=== PATIENT | male | born 1950 | race Caucasian/White ===

== ENCOUNTER 2025-03-18 07:05 | Observation (INO) ==
[2025-03-18] MEDS: LR 1,000 ML IV 1,000 ML IV ONE (07:22)
[2025-03-18] MEDS: ANCEF VIAL 1 GRAM ONE (08:19)
[2025-03-18] MEDS: NS 100 ML IV 100 ML ONE (08:19)
[2025-03-18] MEDS: VERSED ONE (08:25)
[2025-03-18] MEDS: FENTANYL VIAL INJ 100 mcg ONE (08:25)
[2025-03-18] MEDS: DIPRIVAN VIAL 20 ML ONE (08:26)
[2025-03-18] MEDS: ZEMURON 100 MG VIAL ONE (08:27)
[2025-03-18] MEDS: ZOFRAN INJ 4 MG VIAL ONE (08:27)
[2025-03-18] MEDS: PEPCID 20 MG VIAL ONE (08:29)
[2025-03-18] MEDS: ZOFRAN INJ 4 MG VIAL IVP PRN (08:30)
[2025-03-18] MEDS: PEPCID 20 MG VIAL IVP PRN (08:30)
[2025-03-18] MEDS ORDERED: ULTANE GAS IN ONE (08:30)
[2025-03-18] MEDS: QUELICIN (OR ANECTINE) ONE (08:34)
[2025-03-18] MEDS: LR 1,000 ML IV 900 ML IV PRN (08:40)
[2025-03-18] MEDS: ANCEF VIAL 1 GRAM IV PRN (08:40)
[2025-03-18] MEDS: VERSED IVP PRN (08:41)
[2025-03-18] MEDS: DIPRIVAN VIAL 150 ML IVP PRN (08:48)
[2025-03-18] MEDS: QUELICIN (OR ANECTINE) IVP PRN (08:48)
[2025-03-18] MEDS: FENTANYL VIAL INJ 100 mcg IVP PRN (08:48)
[2025-03-18] MEDS ORDERED: XYLOCAINE 2 % (PLAIN) PRN (08:48)
[2025-03-18] MEDS: KETAMINE HCL IV PRN (08:51)
[2025-03-18] MEDS: DECADRON INJ IVP PRN (08:52)
[2025-03-18] MEDS: POLYMYXIN B SULFATE ONE (08:59)
[2025-03-18] MEDS: MARCAINE 0.5% ONE (08:59)
[2025-03-18] MEDS: KETAMINE HCL ONE (09:07)
[2025-03-18] MEDS: PRECEDEX INJ VIAL ONE (09:09)
[2025-03-18] MEDS ORDERED: DILAUDID INJ IVP PRN (09:16)
[2025-03-18] MEDS ORDERED: BARHEMSYS INJ IVP PRN (09:16)
[2025-03-18] MEDS ORDERED: BENADRYL INJ 50 MG VIAL IVP PRN (09:16)
[2025-03-18] MEDS ORDERED: REGLAN INJ 10 MG VIAL IVP PRN (09:16)
[2025-03-18] MEDS ORDERED: ZOFRAN INJ 4 MG VIAL IVP PRN ×2 (09:16→10:39)
[2025-03-18] MEDS: OFIRMEV IV 1000 MG VIAL 1,000 MG/100 ML VIAL IV PRN (09:18)
[2025-03-18] MEDS: OFIRMEV IV 1000 MG VIAL 1,000 MG/100 ML VIAL IV ONE (09:19)
[2025-03-18] MEDS: DECADRON INJ ONE (09:19)
[2025-03-18] MEDS: PRECEDEX INJ VIAL IVP PRN (09:44)
[2025-03-18] MEDS: ZEMURON 100 MG VIAL IVP PRN (09:46)
[2025-03-18] MEDS: BRIDION ONE (09:48)
[2025-03-18] MEDS: BACTROBAN TOPICAL OINT ONE (10:00)
[2025-03-18] MEDS: BRIDION IVP PRN (10:04)
[2025-03-18] MEDS: D5 1/2 NS 1,000 ML 1,000 ML IV SCH (11:03)
[2025-03-18] MEDS: ANCEF VIAL 1 GRAM 1 G in NS 100 ML IV 100 ML IV SCH (11:04)
[2025-03-18] MEDS: MORPHINE SULFATE INJ 2 MG INJ IVP PRN (11:16)
[2025-03-18 12:29] VITALS: BMI 29.8
[2025-03-18] MEDS: PERCOCET TAB 5/325 MG PO PRN (13:32)
[2025-03-19 04:13] VITALS: RESP 18
[2025-03-19 05:00] LABS: MEAN PLATELET VOLUME 7.1 fL (7.4-11.0); RED CELL DISTRIBUTION WIDTH 14.3 % (11.6-16.5)
[2025-03-19 05:14] LABS: COR CA(FOR HYPOALB) 8.8 mg/dL (8.5-10.1); COR NA(FOR HYPERGLY) 141 mmol/L (136-145); CREATININE 1.09 mg/dL (0.70-1.30); eGFR NON BLACK RACES > 60 (>60)
[2025-03-19 08:03] VITALS: BP 140/66; PULSE 59; TEMP 98.7; O2SAT 97
[2025-03-19] MEDS ORDERED: PHARMACY CONSULT XX SCH (09:00)
== END 2025-03-19 08:50 | disposition home or self-care (01) ==
LOC: SURG1 07:05 → MED/SURG 07:05
PROVIDERS: ADMIT Surgery; ATTEND Surgery
DX: R73.09 Other abnormal glucose; Z59.89 Other problems related to housing and economic circumstances; K40.30 Unilateral inguinal hernia, with obstruction, without gangrene, not specified as recurrent; Z68.30 Body mass index [BMI] 30.0-30.9, adult; G89.18 Other acute postprocedural pain; E78.5 Hyperlipidemia, unspecified; K21.9 Gastro-esophageal reflux disease without esophagitis; I10 Essential (primary) hypertension; D72.828 Other elevated white blood cell count; E66.01 Morbid (severe) obesity due to excess calories